=== PATIENT | male | born 1990 | race Caucasian/White ===

== ENCOUNTER → 2016-12-04 | Outpatient (CLI) | payer BC ==
--- NOTE | 2016-12-04 12:23 | DIAGNOSTIC IMAGING REPORT ---
CHEST 2 VIEWS ROUTINE CLINICAL HISTORY: 3 month history of intermittent productive cough. COMPARISON STUDY: Chest radiograph February 06, 2014. FINDINGS: No pneumothorax or pleural effusion is present. Moderate left upper lobe airspace opacity is present. The extent of airspace opacity is slightly greater than on exam of February 06, 2014. There may be mild superior retraction of the left hilum. There is slight left suprahilar fullness. Cardiac size is normal. Mediastinal contours are normal. Right lung is clear. There is no evidence of pulmonary edema. IMPRESSION: Left upper lobe airspace opacity. Chest radiograph of February 06, 2014 demonstrated apparent left upper lobe pneumonia in a similar location. In addition, there is possible superior retraction of the left hilum with left suprahilar fullness which could be due to lymphadenopathy. This may be reactive. A chest CT with contrast is recommended for these indeterminate findings. Electronically signed by: Marshall Askew M.D. 12/04/2016 12:22 PM Dictated Date/Time: 12/04/2016 12:16 PM
== END | disposition home or self-care (01) ==
LOC: C.RAD1850 12:01
PROVIDERS: ATTEND Family Medicine
DX: R05 Cough (principal); R91.8 Other nonspecific abnormal finding of lung field

== ENCOUNTER → 2016-12-05 | Outpatient (CLI) | payer BC ==
[~2016-12-05] MED LIST: OPTIRAY 320 IV PRN
--- NOTE | 2016-12-05 15:30 | DIAGNOSTIC IMAGING REPORT ---
CT OF THE CHEST WITH IV CONTRAST CLINICAL HISTORY: Cough. Abnormal chest radiograph. COMPARISON STUDY: Radiograph December 04, 2016. TECHNIQUE: Following IV administration of 119 mL of Optiray-320, helical axial images of the chest were obtained. Images were viewed in the axial, sagittal and coronal planes. IV contrast was administered without complication. CT DOSE: 240.47 mGy.cm FINDINGS: The size of the heart is normal. There is no evidence of thoracic aortic dissection. Central airways are patent. There is a borderline enlarged left suprahilar lymph node that measures 8 mm in short extremity. There is a cavitary irregular opacity within the left upper lobe that measures 5.4 x 2.8 cm. There is adjacent tree-in-bud nodules. Otherwise, lungs are clear. No pneumothorax or pleural effusion is present. Bony thorax and upper abdomen are unremarkable. IMPRESSION: 1. Irregular cavitary left upper lobe airspace opacity with adjacent tree-in-bud nodules. The findings are highly suggestive of an infectious process and differential considerations include a cavitary pneumonia. In addition, tuberculosis could have this imaging appearance. A fungal infection could appear similar as well. Radiographic follow up to ensure resolution is recommended to exclude the much less likely possibility of a mass. Discussed with Dr. Lindsay at time of dictation. 2. Prominent left suprahilar lymph nodes which are likely reactive. Electronically signed by: Marshall Askew M.D. 12/05/2016 3:29 PM Dictated Date/Time: 12/05/2016 2:34 PM
== END | disposition home or self-care (01) ==
LOC: C.CTS 14:12
PROVIDERS: ATTEND Family Medicine
DX: R05 Cough (principal); R93.8 Abnormal findings on diagnostic imaging of other specified body structures

== ENCOUNTER → 2017-01-07 | Outpatient (CLI) | payer BC ==
[2017-01-07 16:48] LABS: BASO % 0.3 %; BASO ABS # 0.03 K/uL (0-0.2); COMPLETE YES; HEMATOCRIT 43.2 % (42-52); IG% 0.2 %; LYMPH % 35.3 %; LYMPH ABS # 3.08 K/uL (1.2-3.4); MEAN CELL VOLUME 82.9 fL (80-100); MEAN CORPUSCULAR HEMOGLOBIN 29.2 pg (25-34); MEAN CORPUSCULAR HGB CONC 35.2 g/dl (32-36); MEAN PLATELET VOLUME 10.6 fL (7.4-10.4); MONO % 8.1 %; NEUT % 55.1 %; PLATELET COUNT 197 K/uL (130-400); RED BLOOD COUNT 5.21 M/uL (4.7-6.1); WHITE BLOOD COUNT 8.72 K/uL (4.8-10.8)
[2017-01-07 18:06] LABS: URINE APPEARANCE CLEAR (CLEAR); URINE BILIRUBIN NEG (NEG); URINE COLOR YELLOW; URINE EPITHELIAL CELL AUTO 0-5 /lpf (0-5); URINE NITRITE NEG (NEG); URINE PH 6.5 (4.5-7.5); UROBILINOGEN NEG (NEG); ZZUR CULT IF INDIC CLEAN CATCH NO
[2017-01-07 18:12] LABS: MANUAL MICROSCOPIC REQUIRED? NO; REVIEW REQ? NO
[2017-01-11 14:31] LABS: QUANTIF TB AG-NIL 2.94 IU/ML; QUANTIFERON NIL 0.21 IU/ML
== END | disposition home or self-care (01) ==
LOC: C.LAB 15:13 → C.LABBC 15:13
PROVIDERS: ATTEND Family Medicine
DX: J18.9 Pneumonia, unspecified organism (principal); J98.4 Other disorders of lung; R91.8 Other nonspecific abnormal finding of lung field

== ENCOUNTER → 2017-02-18 | Outpatient (CLI) | payer BC, OTHER ==
[2017-02-18 10:55] LABS: HEMATOCRIT 43.4 % (42-52); MEAN CELL VOLUME 83.6 fL (80-100); MEAN CORPUSCULAR HEMOGLOBIN 28.9 pg (25-34); MEAN CORPUSCULAR HGB CONC 34.6 g/dl (32-36); MEAN PLATELET VOLUME 10.6 fL (7.4-10.4); PLATELET COUNT 173 K/uL (130-400); RED BLOOD COUNT 5.19 M/uL (4.7-6.1); WHITE BLOOD COUNT 6.82 K/uL (4.8-10.8)
== END | disposition home or self-care (01) ==
LOC: C.LABBC 08:45
PROVIDERS: ATTEND Family Medicine
DX: Z11.1 Encounter for screening for respiratory tuberculosis (principal)

== ENCOUNTER → 2017-03-25 | Outpatient (CLI) | payer BC, OTHER ==
--- NOTE | 2017-03-25 12:22 | DIAGNOSTIC IMAGING REPORT ---
CHEST 2 VIEWS ROUTINE CLINICAL HISTORY: CHEST Z11.1 tuberculosis COMPARISON STUDY: 12/04/2016 FINDINGS: Left apical opacity improved from the prior exam. No significant and/or only minimal hilar retraction on the current study. Lungs otherwise appear clear. Diaphragms smooth. Moderate Baseline emphysematous changes present. IMPRESSION: Improving densities over the left pulmonary apex with improving left hilar retraction. Electronically signed by: Jackson Thapa M.D. 03/25/2017 12:21 PM Dictated Date/Time: 03/25/2017 12:18 PM
[2017-03-25 13:36] LABS: BASO % 0.4 %; BASO ABS # 0.03 K/uL (0-0.2); COMPLETE YES; EOS % 2.2 %; HEMATOCRIT 43.5 % (42-52); IG% 0.1 %; LYMPH ABS # 2.62 K/uL (1.2-3.4); MEAN CORPUSCULAR HEMOGLOBIN 27.9 pg (25-34); MEAN CORPUSCULAR HGB CONC 33.6 g/dl (32-36); MEAN PLATELET VOLUME 10.7 fL (7.4-10.4); MONO % 8.1 %; NEUT % 51.2 %; PLATELET COUNT 181 K/uL (130-400); RED BLOOD COUNT 5.24 M/uL (4.7-6.1)
== END | disposition home or self-care (01) ==
LOC: C.RADBC 11:11
PROVIDERS: ATTEND Internal Medicine Infectious Disease
DX: Z11.1 Encounter for screening for respiratory tuberculosis (principal)

== ENCOUNTER → 2017-04-17 | Outpatient (CLI) | payer BC, OTHER ==
[2017-04-17 14:26] LABS: BASO % 0.3 %; BASO ABS # 0.02 K/uL (0-0.2); COMPLETE YES; EOS % 1.8 %; HEMATOCRIT 45.5 % (42-52); IG% 0.2 %; LYMPH % 31.5 %; LYMPH ABS # 1.94 K/uL (1.2-3.4); MEAN CELL VOLUME 82.9 fL (80-100); MEAN CORPUSCULAR HEMOGLOBIN 27.9 pg (25-34); MEAN CORPUSCULAR HGB CONC 33.6 g/dl (32-36); MEAN PLATELET VOLUME 10.7 fL (7.4-10.4); MONO % 5.8 %; NEUT % 60.4 %; PLATELET COUNT 169 K/uL (130-400); RED BLOOD COUNT 5.49 M/uL (4.7-6.1); WHITE BLOOD COUNT 6.16 K/uL (4.8-10.8)
== END | disposition home or self-care (01) ==
LOC: C.LABBC 09:27
PROVIDERS: ATTEND Internal Medicine Infectious Disease
DX: A15.0 Tuberculosis of lung (principal)

== ENCOUNTER → 2017-04-17 | Outpatient (CLI) | payer BC, OTHER ==
[2017-04-21 03:35] LABS: HSV TYPE 1 DNA Not Detected (Not Detected); HSV TYPE 1&2 DNA SOURCE Plasma; HSV TYPE 2 DNA Not Detected (Not Detected)
[2017-04-21 07:26] LABS: CHLAMYDIA TRACH RNA*** NOT DETECTED (NOT DETECTED); GC (NEIS GONORRHOEAE)RNA** NOT DETECTED (NOT DETECTED)
== END | disposition home or self-care (01) ==
LOC: C.LABBC 09:17
PROVIDERS: ATTEND Family Medicine
DX: Z00.00 Encounter for general adult medical examination without abnormal findings (principal); A15.9 Respiratory tuberculosis unspecified

== ENCOUNTER → 2017-05-21 | Outpatient (CLI) | payer BC, OTHER ==
[2017-05-21 13:57] LABS: BASO % 0.3 %; BASO ABS # 0.02 K/uL (0-0.2); COMPLETE YES; EOS % 1.2 %; HEMATOCRIT 42.6 % (42-52); IG% 0.4 %; LYMPH % 31.3 %; MEAN CELL VOLUME 83.2 fL (80-100); MEAN CORPUSCULAR HEMOGLOBIN 29.5 pg (25-34); MEAN CORPUSCULAR HGB CONC 35.4 g/dl (32-36); MEAN PLATELET VOLUME 10.9 fL (7.4-10.4); NEUT % 55.8 %; PLATELET COUNT 166 K/uL (130-400); RED BLOOD COUNT 5.12 M/uL (4.7-6.1); WHITE BLOOD COUNT 7.34 K/uL (4.8-10.8)
== END | disposition home or self-care (01) ==
LOC: C.LABBC 12:07
PROVIDERS: ATTEND Internal Medicine Infectious Disease
DX: A15.0 Tuberculosis of lung (principal)

== ENCOUNTER → 2017-06-18 | Outpatient (CLI) | payer BC, OTHER ==
[2017-06-18 16:48] LABS: BASO % 0.3 %; BASO ABS # 0.02 K/uL (0-0.2); COMPLETE YES; HEMATOCRIT 45.2 % (42-52); IG% 0.1 %; LYMPH % 29.9 %; LYMPH ABS # 2.33 K/uL (1.2-3.4); MEAN CELL VOLUME 83.2 fL (80-100); MEAN CORPUSCULAR HEMOGLOBIN 28.2 pg (25-34); MEAN CORPUSCULAR HGB CONC 33.8 g/dl (32-36); MEAN PLATELET VOLUME 10.5 fL (7.4-10.4); NEUT % 58.7 %; PLATELET COUNT 188 K/uL (130-400); RED BLOOD COUNT 5.43 M/uL (4.7-6.1); WHITE BLOOD COUNT 7.79 K/uL (4.8-10.8)
== END | disposition home or self-care (01) ==
LOC: C.LABBC 15:04
PROVIDERS: ATTEND Internal Medicine Infectious Disease
DX: A15.0 Tuberculosis of lung (principal)

== ENCOUNTER → 2017-08-18 | Outpatient (CLI) | payer BC, OTHER ==
--- NOTE | 2017-08-18 10:56 | DIAGNOSTIC IMAGING REPORT ---
CHEST 2 VIEWS ROUTINE CLINICAL HISTORY: A15.0 TUBERCULOSIS. FOLLOW-UP STUDY. COMPARISON STUDY: 03/25/2017 FINDINGS: There are persistent left apical airspace opacities. There is mild left hilar retraction. The right lung is clear. There are no pleural effusions. There is no conventional radiographic evidence of significant adenopathy.[ IMPRESSION: Left upper lobe airspace opacities, stable to minimally improved when compared with the prior study Electronically signed by: Wilfredo Garcia M.D. 08/18/2017 10:55 AM Dictated Date/Time: 08/18/2017 10:54 AM
== END | disposition home or self-care (01) ==
LOC: C.RADBC 10:26
PROVIDERS: ATTEND Internal Medicine Infectious Disease
DX: A15.0 Tuberculosis of lung (principal); R91.8 Other nonspecific abnormal finding of lung field

== ENCOUNTER → 2017-10-06 | Outpatient (CLI) | payer BC, OTHER ==
--- NOTE | 2017-10-06 10:35 | DIAGNOSTIC IMAGING REPORT ---
CHEST 2 VIEWS ROUTINE CLINICAL HISTORY: A15.0 ABNORMAL CHEST X-RAY. FOLLOW-UP STUDY. COMPARISON STUDY: 08/18/2017 FINDINGS: The cardiac and mediastinal contours remain stable. There are persistent left apical airspace opacities with linear fibrotic type opacities visualized in the lateral view within the left upper lobe.[ IMPRESSION: Persistent left upper lobe airspace opacities, unchanged when compared the preceding study Electronically signed by: Wilfredo Garcia M.D. 10/06/2017 10:34 AM Dictated Date/Time: 10/06/2017 10:32 AM
== END | disposition home or self-care (01) ==
LOC: C.RADBC 10:00
PROVIDERS: ATTEND Internal Medicine Infectious Disease
DX: A15.0 Tuberculosis of lung (principal)